=== PATIENT | female | born 2000 | race Caucasian/White ===

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

== ENCOUNTER 2020-09-11 06:15 | Inpatient (IN) | payer MEDICAID ==
[~2020-09-11] VITALS: Ht 157.5 cm; Wt 70.5 kg
[2020-09-11] MEDS ORDERED: PREN1TAB60 PO (06:57)
[2020-09-11] MEDS ORDERED: iron (06:57)
[2020-09-11] MEDS ORDERED: magnes (06:57)
[2020-09-11] MEDS ORDERED: ONDANSETRON 2MG/ML, 2ML IVPush PRN (07:00)
[2020-09-11] MEDS ORDERED: FENTANYL PF 100 MCG/2ML IVPush PRN (07:00)
[2020-09-11] MEDS ORDERED: TERBUTALINE 1 MG/ML, 1ML IVPush PRN (07:00)
[2020-09-11] MEDS ORDERED: OXYTOCIN 30U/ 0.9% NaCL 500ML 500 ML IV ONE (07:00)
[2020-09-11] MEDS ORDERED: TERBUTALINE 1 MG/ML, 1ML SQ PRN (07:00)
[2020-09-11] MEDS ORDERED: OXYTOCIN 30U/ 0.9% NaCL 500ML 500 ML ONE ×2 (07:00→10:49)
[2020-09-11] MEDS ORDERED: D5%-LACTATED RINGERS 1,000 ML IV SCH (07:00)
[2020-09-11] MEDS ORDERED: LACTATED RINGERS 1,000 ML IV SCH (07:00)
[2020-09-11] MEDS ORDERED: NEWBORN KIT ONE (07:00)
[2020-09-11] MEDS ORDERED: MISOPROSTOL 200 MCG TABLET ONE (07:02)
[2020-09-11] MEDS ORDERED: LIDOCAINE 1%, 20ML ONE (07:02)
[2020-09-11] MEDS ORDERED: FENTANYL PF 100 MCG/2ML ONE (07:06)
[2020-09-11] MEDS: FENTANYL PF 100 MCG/2ML IV PRN ×2 (07:16→07:40)
[2020-09-11] MEDS ORDERED: FENTANYL/BUPIV./NS/PF 250 ML EPIDCONT ONE (07:19)
[2020-09-11] MEDS ORDERED: BUPIVACAINE 0.25% ONE (07:20)
[2020-09-11 07:26] LABS: BASOPHILS % (AUTO) 1 % (0-1); EOSINOPHILS % (AUTO) 1 % (1-7); LYMPHOCYTES % (AUTO) 19 % (22-44); MEAN CORPUSCULAR HGB CONC 31.5 g/dL (32.4-35.8); MEAN PLATELET VOLUME 6.7 fL (7.4-10.4); MONOCYTES % (AUTO) 7 % (2-9); NEUTROPHILS % (AUTO) 72 % (42-75); PLATELET COUNT 265 x10^3/uL (130-400); RED BLOOD COUNT 3.89 x10^6/uL (3.82-5.3); RED CELL DISTRIBUTION WIDTH 15.7 % (9.6-15.2)
[2020-09-11 07:27] VITALS: BP 122/75
[2020-09-11] MEDS ORDERED: NALOXONE 0.4 MG/ML, 1ML IVPush PRN (07:30)
[2020-09-11] MEDS: LACTATED RINGERS 1,000 ML IV SCH ×3 (07:30→23:30)
[2020-09-11] MEDS ORDERED: LACTATED RINGERS 1,000 ML IVBOLUS PRN (07:30)
[2020-09-11] MEDS ORDERED: FENTANYL/BUPIV./NS/PF 250 ML EPIDCONT SCH (07:30)
[2020-09-11] MEDS ORDERED: EPHEDRINE 50 MG/ML, 1ML IVPush PRN (07:30)
[2020-09-11 07:44] LABS: MD MORPH REVIEW ONLY
[2020-09-11 07:45] LABS: <PLATELET ESTIMATE> ADEQUATE; <PLT MORPHOLOGY> NORMAL PLT MORPH; ANISOCYTOSIS 1+; MICROCYTOSIS 1+
[2020-09-11 08:40] LABS: MICROSCOPIC NOT IND
[2020-09-11 08:45] LABS: ALBUMIN 2.5 g/dL (3.4-5.0); ANION GAP 8 mmol/L (5-15); CALCIUM 8.1 mg/dL (8.5-10.1); CHLORIDE 110 mmol/L (98-107)
[2020-09-11 08:49] LABS: ALANINE AMINOTRANSFERASE 12 U/L (12-78); ALKALINE PHOSPHATASE 144 U/L (45-117); BILIRUBIN,TOTAL 0.2 mg/dL (0.2-1.0); CREATININE 0.47 mg/dL (0.55-1.02); TOTAL PROTEIN 5.9 g/dL (6.4-8.2)
[2020-09-11 08:54] LABS: CREATININE,URINE RANDOM 48.1 mg/dL
[2020-09-11] MEDS ORDERED: MAGNESIUM HYDROXIDE 8%, 30ML UDC PO PRN (10:00)
[2020-09-11] MEDS ORDERED: CARBOPROST TROMETHAMINE 250 MCG/ML, 1ML IM PRN (10:00)
[2020-09-11] MEDS ORDERED: METHYLERGONOVINE 0.2 MG/ML IM PRN (10:00)
[2020-09-11] MEDS ORDERED: OXYcodone/APAP 5/325MG TABLET PO PRN (10:00)
[2020-09-11] MEDS ORDERED: MISOPROSTOL 200 MCG TABLET PR PRN (10:00)
[2020-09-11] MEDS ORDERED: ACETAMINOPHEN 325 MG TABLET PO PRN (10:00)
[2020-09-11] MEDS ORDERED: OXYcodone IR 5MG TABLET PO PRN (10:00)
[2020-09-11] MEDS ORDERED: ONDANSETRON 2MG/ML, 2ML IV PRN (10:00)
[2020-09-11] MEDS ORDERED: DOCUSATE 100 MG CAPSULE PO PRN (10:00)
[2020-09-11] MEDS ORDERED: SIMETHICONE 80 MG CHEW TAB PO PRN (10:00)
[2020-09-11] MEDS: OXYTOCIN 30U/ 0.9% NaCL 500ML 500 ML IV SCH ×2 (10:58→20:00)
[2020-09-11] MEDS: IBUPROFEN 600 MG TABLET PO PRN ×2 (12:05→17:47)
[2020-09-11 13:00] VITALS: BP 127/73
[2020-09-11 16:30] VITALS: BP 134/86
[2020-09-11] MEDS ORDERED: FERROUS GLUCONATE 324 MG TABLET PO SCH (17:00)
[2020-09-11 18:17] LABS: BASOPHILS % (AUTO) 0 % (0-1); EOSINOPHILS % (AUTO) 1 % (1-7); LYMPHOCYTES % (AUTO) 15 % (22-44); MEAN CORPUSCULAR HEMOGLOBIN 22.9 pg (27.0-34.8); MEAN CORPUSCULAR HGB CONC 31.5 g/dL (32.4-35.8); MEAN PLATELET VOLUME 6.8 fL (7.4-10.4); MONOCYTES % (AUTO) 8 % (2-9); NEUTROPHILS % (AUTO) 75 % (42-75); PLATELET COUNT 231 x10^3/uL (130-400); RED BLOOD COUNT 3.95 x10^6/uL (3.82-5.3); RED CELL DISTRIBUTION WIDTH 15.8 % (9.6-15.2)
[2020-09-11 18:18] LABS: MD NO
[2020-09-11 20:17] VITALS: BP 107/73
[2020-09-12 00:43] VITALS: BP 119/72
[2020-09-12] MEDS: IBUPROFEN 600 MG TABLET PO PRN ×2 (00:43→09:07)
[2020-09-12 04:00] VITALS: BP 112/74
[2020-09-12] MEDS: OXYTOCIN 30U/ 0.9% NaCL 500ML 500 ML IV SCH (06:00)
[2020-09-12] MEDS: LACTATED RINGERS 1,000 ML IV SCH (07:30)
[2020-09-12 08:00] VITALS: BP 101/59
[2020-09-12] MEDS ORDERED: PRENATAL VIT/IRON/FA 1 EACH TABLET PO SCH (09:00)
[2020-09-12] MEDS ORDERED: IBUP-1222 PO (09:36)
[2020-09-12] MEDS ORDERED: DOCU-131 PO (09:36)
[2020-09-12] MEDS ORDERED: FERR324T5 PO (09:38)
== END 2020-09-12 15:44 | disposition home or self-care (01) | DRG 807 ==
LOC: LDOP 06:15 → LDIP 06:43 → 2NW 12:49
PROVIDERS: ADMIT Obstetrics & Gynecology Maternal & Fetal Medicine; ATTEND Obstetrics & Gynecology Maternal & Fetal Medicine
PROC: 10E0XZZ Delivery of Products of Conception, External Approach (ICD-10-PCS; principal; 2020-09-11)
PROC: 10907ZC Drainage of Amniotic Fluid, Therapeutic from Products of Conception, Via Natural or Artificial Opening (ICD-10-PCS; 2020-09-11)
PROC: 3E0R3BZ Introduction of Anesthetic Agent into Spinal Canal, Percutaneous Approach (ICD-10-PCS; 2020-09-11)
PROC: 00HU33Z Insertion of Infusion Device into Spinal Canal, Percutaneous Approach (ICD-10-PCS; 2020-09-11)
DX: O99.02 Anemia complicating childbirth (principal); Z37.0 Single live birth; Z3A.38 38 weeks gestation of pregnancy; Z20.822 Contact with and (suspected) exposure to COVID-19; D64.9 Anemia, unspecified
CPT/HCPCS: 36415; 80053; 81003; 82570; 84156; 84550; 85025; 86592; 86850; 86900; 87635; G0378; J3010; J2590; J7120